=== PATIENT | female | born 1950 | race African-American/Black ===

== ENCOUNTER 2019-12-29 20:27 | Inpatient (IN) | payer MEDICARE, MEDICAID ==
[~2019-12-29] VITALS: Ht 160 cm; Wt 83.5 kg
[2019-12-29] MEDS ORDERED: ONDANSETRON HCL 4MG/2ML INJ IV STA (20:35)
[2019-12-29] MEDS ORDERED: DOPAMINE 400MG/250ML PREMIX 250 ML IV ONE (20:45)
[2019-12-29] MEDS ORDERED: GLUCAGON,HUMAN RECOMBINANT 1MG/VIAL IV ONE (20:45)
[2019-12-29] MEDS ORDERED: ATROPINE SULFATE 1MG/10ML SYR IV ONE (20:45)
[2019-12-29 21:17] LABS: BASOPHILS % 0.3 % (0.0-2.0); EOSINOPHILS % 0.3 % (0.0-5.0); HEMATOCRIT. 36.1 % (36.0-48.0); HEMOGLOBIN. 11.8 g/dL (12.0-16.0); LYMPHOCYTES % 16.7 % (20.0-50.0); MEAN CORPUSCULAR HEMOGLOBIN 29.7 pg (28.0-32.0); MEAN CORPUSCULAR VOLUME 90.7 fL (81.0-99.0); MEAN PLATELET VOLUME 9.9 fl (7.4-10.4); NEUTROPHILS % 76.7 % (40.0-76.0); PLATELET 174 x1000/uL (130-400); RED BLOOD CELL COUNT 3.98 mill/uL (4.2-5.4)
[2019-12-29 21:20] LABS: CHLORIDE 104 mEq/L (98-107)
[2019-12-29 21:23] LABS: PARTIAL THROMBOPLASTIN TIME 20.9 sec (23.4-31.0); PROTHROMBIN TIME 10.7 sec (9.6-11.0)
[2019-12-29] MEDS ORDERED: ASPI-1158 MT (23:52)
[2019-12-29] MEDS ORDERED: LOSA50TA41 MT (23:52)
[2019-12-29] MEDS ORDERED: METO1TAB26 MT (23:52)
[2019-12-29] MEDS ORDERED: METF-414 MT (23:52)
[2019-12-29] MEDS ORDERED: TRIA1TAB92 PO (23:52)
[2019-12-30] VITALS (7 sets, daily range): BP systolic 131–148; BP diastolic 64–91
[2019-12-30] MEDS ORDERED: INSULIN LISPRO 100 UNITS/ML SUBCUT ONE
[2019-12-30] MEDS ORDERED: TRAZ-251 MT (00:55)
[2019-12-30] MEDS ORDERED: METO1TAB24 PO (00:56)
[2019-12-30] MEDS ORDERED: MULT-1146 MT (01:08)
[2019-12-30] MEDS ORDERED: IBUP-2028 MT (01:08)
[2019-12-30] MEDS ORDERED: DILT360C31 MT (01:08)
[2019-12-30] MEDS ORDERED: DOCU-150 MT (01:08)
[2019-12-30] MEDS ORDERED: IBUP-2028 PO (01:08)
[2019-12-30] MEDS ORDERED: FERR325T30 PO (01:08)
[2019-12-30] MEDS ORDERED: CALC1TAB99 PO (01:08)
[2019-12-30] MEDS ORDERED: TERA5CAP4 MT (01:08)
[2019-12-30 06:38] LABS: CLARITY URINE CLEAR (CLEAR); COLOR URINE YELLOW (YELLOW); KETONES URINE NEGATIVE (NEGATIVE); LEUKOCYTE ESTERASE URINE NEGATIVE (NEGATIVE); NITRITE URINE NEGATIVE (NEGATIVE); OCCULT BLOOD URINE NEGATIVE (NEGATIVE); PH URINE 6.5 (4.5-8.0); PROTEIN URINE NEGATIVE (NEGATIVE); SPECIFIC GRAVITY URINE 1.008 (1.005-1.030); UROBILINOGEN URINE 0.2 E.U./dL (0.2-1.0)
[2019-12-30] MEDS ORDERED: LORAZEPAM 2MG/ML CPJ IV PRN (06:45)
[2019-12-30] MEDS ORDERED: IPRATROPIUM/ALBUTEROL 0.5-3(2.5)MG/3ML NEB NEB PRN (06:45)
[2019-12-30] MEDS ORDERED: ONDANSETRON HCL 4MG/2ML INJ IV PRN (06:45)
[2019-12-30] MEDS ORDERED: DOPAMINE 400MG/250ML PREMIX 250 ML IV SCH (06:45)
[2019-12-30] MEDS ORDERED: DIPHENHYDRAMINE 50MG/ML VIAL IV PRN (06:45)
[2019-12-30] MEDS ORDERED: DEXTROSE 50% WATER 50ML SYRINGE IV PRN (06:45)
[2019-12-30] MEDS ORDERED: DOCUSATE SODIUM 100MG CAPSULE PO PRN (06:45)
[2019-12-30] MEDS ORDERED: NA PHOS,M-B/NA PHOS,DI-BA ENEMA 118ML PR PRN (06:45)
[2019-12-30] MEDS ORDERED: MAGNESIUM/ALUMINUM HYDROXIDE/SIMETHICONE 30ML UDC PO PRN (06:45)
[2019-12-30] MEDS ORDERED: MORPHINE SULFATE 2 MG/ML CPJ (NOT FOR IM USE) IV PRN (06:45)
[2019-12-30] MEDS: INSULIN LISPRO 100 UNITS/ML SUBCUT SCH ×3 (10:54→21:01)
[2019-12-30] MEDS: BLOOD SUGAR DIAGNOSTIC STRIP TEST SCH ×3 (10:54→21:02)
[2019-12-30] MEDS: ENOXAPARIN 40MG/0.4ML SYR SUBCUT SCH (11:07)
[2019-12-30] MEDS: SODIUM CHLORIDE 0.9% INJ 3ML FLUSH IVF SCH ×2 (14:00→21:02)
[2019-12-30 16:15] LABS: CREATINE KINASE 55 IU/L (26-192)
[2019-12-30 16:16] LABS: CREATINE KINASE MB FRACTION < 1.0 ng/mL (0.5-3.6)
[2019-12-31] VITALS (11 sets, daily range): BP systolic 128–175; BP diastolic 64–93
[2019-12-31 00:18] LABS: CREATINE KINASE 47 IU/L (26-192)
[2019-12-31 00:20] LABS: CREATINE KINASE MB FRACTION < 1.0 ng/mL (0.5-3.6)
[2019-12-31] MEDS: SODIUM CHLORIDE 0.9% INJ 3ML FLUSH IVF SCH ×3 (06:39→20:56)
[2019-12-31] MEDS: BLOOD SUGAR DIAGNOSTIC STRIP TEST SCH ×4 (06:47→20:50)
[2019-12-31] MEDS: INSULIN LISPRO 100 UNITS/ML SUBCUT SCH ×4 (07:20→20:55)
[2019-12-31] MEDS: HYDRALAZINE 20MG/ML VIAL IV PRN (07:50)
[2019-12-31 11:13] LABS: BASOPHILS % 0.2 % (0.0-2.0); EOSINOPHILS % 0.4 % (0.0-5.0); HEMATOCRIT. 37.4 % (36.0-48.0); HEMOGLOBIN. 12.6 g/dL (12.0-16.0); LYMPHOCYTES % 18.2 % (20.0-50.0); MEAN CORPUSCULAR HEMOGLOBIN 30.3 pg (28.0-32.0); MEAN CORPUSCULAR VOLUME 89.9 fL (81.0-99.0); MEAN PLATELET VOLUME 9.9 fl (7.4-10.4); MONOCYTES % 7.3 % (2.0-8.0); NEUTROPHILS % 73.9 % (40.0-76.0); PLATELET 187 x1000/uL (130-400); RED BLOOD CELL COUNT 4.16 mill/uL (4.2-5.4); RED CELL DISTRIBUTION WIDTH 13.1 % (11.6-14.6)
[2019-12-31 11:22] LABS: CHLORIDE 104 mEq/L (98-107)
[2019-12-31 11:32] LABS: LDL CHOLESTEROL 93 mg/dL (5-100)
[2019-12-31 11:35] LABS: HDL CHOLESTEROL 71 mg/dL (40-59)
[2019-12-31 11:36] LABS: T4 FREE 0.92 ng/dL (0.76-1.46)
[2019-12-31] MEDS: LOSARTAN POTASSIUM 50 MG TABLET PO SCH (11:48)
[2019-12-31] MEDS: HYDROCHLOROTHIAZIDE 25MG TABLET PO SCH (11:48)
[2019-12-31] MEDS: ENOXAPARIN 40MG/0.4ML SYR SUBCUT SCH (11:48)
[2019-12-31] MEDS ORDERED: ZOLPIDEM TARTRATE 5MG TABLET PO PRN (20:00)
[2020-01-01] VITALS (10 sets, daily range): BP systolic 148–174; BP diastolic 75–100
[2020-01-01] MEDS: BLOOD SUGAR DIAGNOSTIC STRIP TEST SCH ×3 (06:07→17:47)
[2020-01-01] MEDS: SODIUM CHLORIDE 0.9% INJ 3ML FLUSH IVF SCH ×2 (06:07→14:48)
[2020-01-01] MEDS: HYDRALAZINE 20MG/ML VIAL IV PRN ×3 (06:11→16:58)
[2020-01-01] MEDS: HYDROCHLOROTHIAZIDE 25MG TABLET PO SCH (06:37)
[2020-01-01] MEDS: LOSARTAN POTASSIUM 50 MG TABLET PO SCH (06:37)
[2020-01-01] MEDS: GUAIFENESIN 200MG/10ML SUGAR FREE UDC PO PRN ×2 (07:45→16:54)
[2020-01-01] MEDS: INSULIN LISPRO 100 UNITS/ML SUBCUT SCH ×3 (07:46→17:20)
[2020-01-01] MEDS ORDERED: AMLODIPINE 5MG TABLET PO SCH (09:00)
[2020-01-01] MEDS ORDERED: DILTIAZEM HCL 30MG TABLET PO NR (10:15)
[2020-01-01] MEDS: ENOXAPARIN 40MG/0.4ML SYR SUBCUT SCH (11:32)
[2020-01-01] MEDS ORDERED: DILTIAZEM HCL 30MG TABLET PO SCH (13:30)
== END 2020-01-01 18:50 | disposition home or self-care (01) | DRG 309 ==
LOC: ER 20:27 → 3WST 23:56 → EDBEDREQTM 23:58 → EDBEDREQ 23:58 → EDBEDREQSVC 12-30 07:33 → EDBEDREQTM 12-30 07:33 → EDBEDREQDT 12-30 07:33 → CANRESERV 12-30 08:45 → ENRESERV 12-30 08:45 → EDBEDREQSVC 12-30 10:24 → ENRESERV 12-30 11:38
PROVIDERS: ADMIT Internal Medicine; ATTEND Internal Medicine
DX: I44.0 Atrioventricular block, first degree (principal); R65.10 Systemic inflammatory response syndrome (SIRS) of non-infectious origin without acute organ dysfunction; R55 Syncope and collapse; R74.0 Nonspecific elevation of levels of transaminase and lactic acid dehydrogenase [LDH]; I11.9 Hypertensive heart disease without heart failure; E11.9 Type 2 diabetes mellitus without complications; R10.9 Unspecified abdominal pain; D64.9 Anemia, unspecified; R79.89 Other specified abnormal findings of blood chemistry; E78.5 Hyperlipidemia, unspecified; Z96.641 Presence of right artificial hip joint; R00.1 Bradycardia, unspecified; Z88.8 Allergy status to other drugs, medicaments and biological substances; Z79.899 Other long term (current) drug therapy; Z79.84 Long term (current) use of oral hypoglycemic drugs
CPT/HCPCS: 36415; 71045; 74018; 80053; 80061; 81003; 82550; 82553; 82962; 83735; 83880; 84439; 84443; 84484; 85025; 93005; 93306; 93970; 99285; J0360; J0461; J1265; J1610; J1650; J1815; J2405